=== PATIENT | male | born 1955 | race Caucasian/White ===

== ENCOUNTER 2018-10-15 09:17 | Outpatient (CLI) | payer OTHER ==
[~2018-10-15 09:17] MED LIST: ATACAND32 MG PO; DEPO-TESTOS200 MG/ML IM; NORVASC5 MG PO; TAMS0.4C PO
== END 2018-10-15 09:55 | disposition home or self-care (01) ==
LOC: SONOGRAMA 09:17
DX: E04.1 Nontoxic single thyroid nodule (principal)

== ENCOUNTER 2024-01-29 16:19 | Outpatient (CLI) | payer OTHER | END 2024-01-29 16:25 | disposition home or self-care (01) | LOC: RAD 16:19 | PROVIDERS: ATTEND Neuromusculoskeletal Medicine, Sports Medicine | DX: M54.12 Radiculopathy, cervical region (principal) ==